=== PATIENT | female | born 1985 | race Caucasian/White ===

== ENCOUNTER → 2020-03-19 | Outpatient (CLI) | payer OTHER | LOC: LAB 16:46 | PROVIDERS: ATTEND Emergency Medicine | DX: Z20.828 Contact with and (suspected) exposure to other viral communicable diseases (principal) | CPT/HCPCS: U0003 ==

== ENCOUNTER → 2020-12-22 | Outpatient (CLI) | payer OTHER | LOC: LAB 23:43 | PROVIDERS: ATTEND Internal Medicine Pulmonary Disease | DX: R51.9 Headache, unspecified (principal); R50.9 Fever, unspecified; R11.2 Nausea with vomiting, unspecified; J02.9 Acute pharyngitis, unspecified; R53.82 Chronic fatigue, unspecified; Z20.822 Contact with and (suspected) exposure to COVID-19 | CPT/HCPCS: U0003; U0005 ==